=== PATIENT | male | born 1965 | race Caucasian/White ===

== ENCOUNTER 2020-09-07 10:59 | Emergency (ER) | payer MEDICAID ==
[~2020-09-07] VITALS: Ht 185.4 cm; Wt 95.3 kg
--- NOTE | 2020-09-07 11:10 | NUR ---
ED Nurse Note: Patient from home and walked in due to right toe injury. Per pt, he accidentally hit the bed with the edge of his toe. Pt is AOx4, calm and cooperative to care, VSS on RA, afebrile on triage.
--- NOTE | 2020-09-07 11:45 | NUR ---
ED Nurse Note: x-ray at bedside.
--- NOTE | 2020-09-07 12:11 | Emergency Room Report ---
History of Present Illness General Chief Complaint: Lower Extremity Injury Source: Patient Present Illness HPI 55-year-old male presents with right great toe pain sharp, patient reports getting his toenail stuck on the mattress severity is mild, intermittent hurts when the area is touched alleviated when areas is left alone Allergies: Coded Allergies: No Known Allergies (Unverified , 09/07/20) COVID-19 Screening Contact w/high risk pt: No Experienced COVID-19 symptoms?: No COVID-19 Testing performed FUEL BU[employer]ER: No Patient History Past Medical History: see triage record Reviewed Nursing Documentation: PMH: Agreed Nursing Documentation-PM Past Medical History: No History, Except For Review of Systems All Other Systems: negative except mentioned in HPI Physical Exam Vital Signs Date Time Temp Pulse Resp B/P (MAP) Pulse Ox O2 Delivery O2 Flow Rate FiO2 09/07/20 11:02 97.5 85 15 133/91 (105) 95 Room Air General Appearance: well appearing, no apparent distress Head: normocephalic, atraumatic ENT: hearing grossly normal, normal voice Neck: full range of motion, supple Respiratory: no respiratory distress, speaking full sentences Musculoskeletal: other - Right great toe: Toenail is noted with partial avulsion Neurologic: alert, normal gait Psychiatric: mood/affect normal Skin: no rash Procedures Additional Procedure Procedure Narrative Right great toe anesthesia 1% lidocaine without epi digital block patient's great toenail partially avulsed, nail was completely removed onychomycosis noted Medical Decision Making Diagnostic Impression: Primary Impression: Nail avulsion, toe Qualified Codes: S91.209A - Unspecified open wound of unspecified toe(s) with damage to nail, initial encounter ER Course 55-year-old male presents with right great toe pain after nail got caught on mattress, x-ray negative, toenail was removed patient will follow up with podiatry disposition home with return precautions follow-up with PCP Other X-Ray Diagnostic Results Other X-Ray Diagnostic Results : X-Ray ordered: Right foot # of Views/Limited Vs Complete: 3 View Indication: Pain EP Interpretation: Yes Interpretation: no dislocation, no soft tissue swelling, no fractures Impression: No acute disease Electronically Signed by: Sheldon Rico MD Last Vital Signs Date Time Temp Pulse Resp B/P (MAP) Pulse Ox O2 Delivery O2 Flow Rate FiO2 09/07/20 11:02 97.5 85 15 133/91 (105) 95 Room Air Disposition: HOME, SELF-CARE Condition: Stable Referrals: [facility] Lilibeth Cintron. [facility] Patient Instructions: Fingernail or Toenail Removal, Fingernail or Toenail Removal, Care After Additional Instructions: The patient was provided with discharge instructions, notified to follow-up with a primary care doctor and or specialist in the next 24-48 hours, and to return to the ED if they have worsening of their symptoms. Please note that this report is being documented using [employer] technology. This can lead to erroneous entry secondary to incorrect interpretation by the dictating instrument. Sheldon Rico MD Sep 07, 2020 12:11
[2020-09-07 12:29] VITALS: BP 128/89
--- NOTE | 2020-09-07 12:29 | NUR ---
ER DISCHARGE NOTE: Patient is cleared to be discharged per ERMD, pt is aox4, on room air, with stable vital signs. pt was given dc instructions, pt was able to verbalize understanding, pt id band removed without complications. pt is able to ambulate with steady gait. pt took all belongings.
--- NOTE | 2020-09-07 13:23 | Diagnostic Imaging Report ---
Indication: Trauma to the right great toe, pain PAIN Technique: 3 views right foot Comparison: none Findings: There is a transverse fracture of the base of the fifth metatarsal. The edges appear corticated. There is also a vertical component of the fracture. No definite acute-appearing fracture demonstrated. There are mild degenerative changes of the first metatarsophalangeal joint. The remaining joint spaces are preserved. 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 Findings discussed by phone with Dr. Rico at the time of interpretation
== END 2020-09-07 12:29 | disposition home or self-care (01) ==
LOC: EMR 12:03
DX: S91.201A Unspecified open wound of right great toe with damage to nail, initial encounter (principal); W22.03XA Walked into furniture, initial encounter; Y92.9 Unspecified place or not applicable
CPT/HCPCS: 73630; Z7502; 99283